=== PATIENT | male | born 1975 | race Caucasian/White ===

== ENCOUNTER 2024-01-18 23:13 | Emergency (ER) | payer OTHER, SELFPAY ==
[2024-01-18 23:18] VITALS: BP 179/131; PULSE 80; RESP 16; O2SAT 96; BMI 42.4
--- NOTE | 2024-01-18 23:35 | ED_ITS ---
HPI - General Adult General Chief complaint: Hypertension Stated complaint: High Blood Pressure Time Seen by Provider: 01/18/24 23:25 History of Present Illness HPI narrative: Patient is a 48-year-old gentleman comes in today with a elevation is blood pressure peers blood pressure has been elevated for the last several months. He is currently on lisinopril 40 mg daily and was recently started on metoprolol 50 mg daily. He feels like his blood pressure still not under good control and he is quite anxious about this. He had some dry mouth earlier but no chest pain shortness a breath orthopnea no PND no nausea no vomiting. Patient is also on allopurinol for gout and has no gout symptoms. Due to his elevated blood pressure comes in for further evaluation. Related Data Allergies Allergy/AdvReac Type Severity Reaction Status Date / Time No Known Drug Allergies Allergy Verified 01/18/24 23:23 Review of Systems Status of ROS: Reports: 10 or more systems reviewed and unremarkable except as noted in History and below [facility] Medical History Gout ?M10.9 - Gout, unspecified (ICD-10) Hypertension ?I10 - Essential (primary) hypertension (ICD-10) Exam Narrative: Exam Narrative: EXAM GENERAL: Patient appears comfortable and well. EYES: No scleral icterus. LYMPH: No supraclavicular or cervical lymphadenopathy. SKIN: Visible skin seen during exam normal or with benign process only. EXT: No dependent lower extremity pedal edema. HEART: Regular rate and rhythm with no murmurs, rubs, or gallops. LUNGS: Clear to auscultation bilaterally with no crackles or wheezes. ABD: Soft, non tender, non distended. PSYCH: Good eye contact, speech is not pressured. Const: Vital Signs, click to edit/add: Vital Signs - 24 hr 01/18/24 23:18 Pulse Rate [Left P ulse Oximeter] 80 Respiratory Rate 16 Blood Pressure [Ri ght Upper Arm] 179/131 H Pulse Oximetry 96 Oxygen Delivery Me thod Room Air Course Course ED Course: Patient seen examined. We did have a nice discussion about the management of hypertension. Vital Signs Vital signs: Initial Vital Signs Temperature Source Temporal Artery Scan 01/18/24 23:18 Pulse Rate 80 01/18/24 23:18 Pulse Rhythm Regular 01/18/24 23:18 Respiratory Rate 16 01/18/24 23:18 Blood Pressure 179/131 H 01/18/24 23:18 Blood Pressure Mean 147 H 01/18/24 23:18 Blood Pressure Position Sitting 01/18/24 23:18 Pulse Oximetry 96 01/18/24 23:18 Oxygen Delivery Method Room Air 01/18/24 23:18 Vital Signs Pulse Rate 80 01/18/24 23:18 Respiratory Rate 16 01/18/24 23:18 Blood Pressure 179/131 H 01/18/24 23:18 Pulse Oximetry 96 01/18/24 23:18 Oxygen Delivery Method Room Air 01/18/24 23:18 Pulse Rate 80 01/18/24 23:18 Respiratory Rate 16 01/18/24 23:18 Blood Pressure 179/131 H 01/18/24 23:18 Pulse Oximetry 96 01/18/24 23:18 Oxygen Delivery Method Room Air 01/18/24 23:18 Medical Decision Making MDM Narrative Medical decision making narrative: Patient is a 48-year-old gentleman comes in today to address his elevated blood pressure. I did do a thorough exam and find no focal defects. He is at this time treated with increase of his metoprolol to 50 mg b.i.d. continuation of lisinopril close outpatient follow-up. Do not believe any laboratory or imaging is indicated. Discharge Plan Discharge Clinical Impression: Hypertension Patient Disposition: Home, Self-Care Condition: Stable Instructions: Hypertension (ED) Additional Instructions: Increase metoprolol to 50 mg twice daily. Continue lisinopril and allopurinol Follow-up with your doctor this coming week. Activity Level: No Restrictions Discharge Diet: Regular Follow Up/Referrals: Gracie Harding PA [Primary Care Provider] - Stand Alone Forms: [employer] Info Instructions
== END 2024-01-18 23:50 | disposition home or self-care (01) ==
LOC: ED 23:42
PROVIDERS: Emergency Provider Internal Medicine; PCP Student in an Organized Health Care Education/Training Program
DX: I10 Essential (primary) hypertension (principal)
CPT/HCPCS: 99283

== ENCOUNTER 2024-06-30 15:48 | Outpatient (CLI) | payer OTHER, SELFPAY ==
--- OUTSIDE RECORDS SUMMARY | 2024-07-03 12:16 | XMS_ITS | Clinical Summary ---
Author Organization [employer] [facility] [employer] [facility] [employer] [facility] Address [place], [place] [address] Care Team Providers Care Cook Fish And Chips Name Role Phone Unavailable Primary Care Provider Unavailabl e Allergies No known active allergies Medications Medication Sig Dispensed Refills Start Date End Date Status fluticasone (50 mcg per actuation) nasal solution (FLONASE)Indication s:Eustachian tube dysfunction, bilateral Inhale 2 Sprays into both nostrils once daily. 1 Bottle 3 09/04/2018 Active zolpidem (AMBIEN) 5 mg tabletIndications:I nsomnia, idiopathic TAKE ONE TO TWO TABLETS BY MOUTH AT BEDTIME NEEDED FOR SLEEP 30 Tablet 08/26/2021 Active lisinopriL (PRINIVIL; ZESTRIL) 40 mg tabletIndications:H ypertension Take 1 Tablet (40 mg) by mouth once daily. 100 Tablet 3 12/24/2023 Active colchicine 0.6 mg tabletIndications:A cute gout involving toe of right foot, unspecified cause On day one take 2 tablets (1.2mg) at once then wait one hour and take 1 tablet (0.6mg). On day two take 0.6 mg twice daily until 48 hours after resolution of the flare. 20 Tablet 3 01/02/2024 Active metoprolol succinate (Toprol XL) 50 mg sustained-release tabletIndications:H ypertension Take 1 Tablet (50 mg) by mouth once daily. 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 TAKE TWO TABLETS BY MOUTH EVERY DAY 180 Tablet 3 01/28/2024 Active CPAPIndications:ASHISH (obstructive sleep apnea) resmed CPAP machine for home use at pressure 12 cmw epr 2, CPAP mask- mask of choice, fit to comfort one cushion per month 1 Each 04/10/2024 Active Active Problems Problem Noted Date Diagnosed Date Colon polyp 04/12/2023 Overview: Colonoscopy 03/2023 SSA, repeat in 5 years, propofol Personal history of COVID-19 05/13/2022 BRCA2 positive 01/30/2020 Overview: Needs clinical breast exam yearly Needs prostate cancer screening yearly Needs Dermatology visit annually due to higher risk of melanoma Needs eye appt yearly to look for melanoma in the eye ASHISH 07/18/2018 HST AHI-26 and Centrals /2017 Central sleep apnea 08/19/2018 Hypertension 07/15/2018 Eustachian tube dysfunction 03/03/2015 Encounters Date Type Department Care Team Description 04/10/2024 11:00 AM CDT Office Visit [facility] [address] [place] [address] Wyatt Maldonado MD Sleep Follow-up (cpap) 04/10/2024 Travel from Last 3 Months Immunizations Name Administration Dates Next Due COVID-19 vaccine (Moderna 100mcg/0.5mL) PFMDV 11/09/2021 Td (Age >=7 Years) 11/17/2010,08/13/2006 Td, Preservative Free (age >= 7 Years) 6 Tdap 03/29/2016 Family History Medical History Relation Name Comments Atrial fibrillation Father Genetic Maternal Aunt BRCA gene posi tive? Cancer-breast Maternal Grandmother in her early 40s Genetic Mother BRCA2 gene posi tive Anesthesia Problem No Family History Relation Name Status Comments Father Alive Maternal Aunt Maternal Grandmother Mother Alive Sister Alive Social History Tobacco Use Types Packs/Day Years Used Date Smoking Tobacco: Never Smokeless Tobacco: Current Chew Tobacco Cessation:Ready to Q uit: No; Counseling Given: Yes Alcohol Use Standard Drinks/Week Comments Not Currently 0 (1 standard drink = 0.6 oz pur e alcohol) 2 drinks per week PHQ-2 Answer Date Recorded PHQ-2 TOTAL SCORE 2 01/02/2024 Social Connections Answer Date Recorded Frequency of Communication with Friends and Fami ly 0 10/29/2023 Financial Resource Strain Answer Date R ecorded Difficulty of Paying Living Expenses 3 10/29/2023 Difficulty of Paying Living Expenses Not on file 10/29/2023 Food Insecurity Answer Date Recorded Worried About Running Out of Food in the Last Ye ar 1 10/29/2023 Transportation Needs Answer Date Record ed Lack of Transportation (Medical) 1 10/29/2023 Housing Stability Answer Date Recorded Unable to Pay for Housing in the Last Year 1 10/29/2023 Sex and Gender Information Value Date Recorded Sex Assigned at Not on file Gender Identity Not on file Sexual Orientation Not on file Obstetrics History Last Filed Vital Signs Vital Sign Reading Time Taken Comments Blood Pressure 146/92 04/10/2024 10:49 AM CDT Pulse 58 04/10/2024 10:49 AM CDT Temperature 37 ??C (98.6 ??F) 06/01/2022 10: 26 AM CDT Respiratory Rate 10 06/22/2022 2:36 PM CDT Oxygen Saturation 97% 04/10/2024 10: 49 AM CDT Inhaled Oxygen Concentration - - Weight 146.9 kg (323 lb 12.8 oz) 2023 10:49 AM CDT Height 186.4 cm (6' 1.4) 01/28/2024 10 :57 AM CDT Body Mass Index 42.26 01/28/2024 10:57 AM CDT Plan of Treatment Health Maintenance Due Date Last Done Comments HIV for age 15-65 1990 COVID-19 vaccine series ( season) 2023 11/09/2021, 03/24/2021, 02/24/2021 Influenza for age 9-49 07/20/2024 Depression screening for age 12+ 01/02/2025 01/02/2024, 09/29/2022, 05/31/2021, Additional history exists BMI (ht and wt on same day) for age 18+ 01/27/2025 01/28/2024, 10/29/2023, 04/06/2023, Additional history exists Tetanus booster 03/29/2026 03/29/2016, 10/21, 08/13/2006, Additional history exists Lipids for age 45-75 09/29/2027 09/29/2022, 05/31/2021, 01/30/2020, Additional history exists Colonoscopy through age 75 04/09/2028 04/09/2023, Tdap Completed 03/29/2016 Hepatitis C screening for age 18-79 Completed 09/29/2022 Pneumococcal series for age 6-64 Aged Out No longer eligible based on patient's age to complete this topic Procedures Procedure Name Priority Date/Time Associated Diagnosis Comments COLONOSCOPY SCREENING Routine 04/09/2023 12:00 AM CDT Screening for colon cancer ANTI HCV Routine 09/29/2022 8:20 AM PURCHASING SUPERVISOR Need for hepatitis C screening test LIPID PANEL W REFLEX MEASURED LDL Routine 09/29/2022 8:20 AM PURCHASING SUPERVISOR Hyperlipidemia, unspecified hyperlipidemia type from Last 3 Months or Most Recently Relevant to Health Maintenance Results * COLONOSCOPY SCREENING (04/09/2023 12:00 AM CDT) Gracie GARCIA GI PROCEDURE ORD * (ABNORMAL) LIPID PANEL W REFLEX MEASURED LDL (09/29/2022 8:20 AM PURCHASING SUPERVISOR) CHOLESTEROL,TOTAL 185 100 - 199 mg/dL 09/30/2022 7:33 PM PURCHASING SUPERVISOR [facility] TRIGLYCERIDES 144 <150 mg/dL 09/30/2022 7:33 PM PURCHASING SUPERVISOR [facility] HDL CHOLESTEROL 38(L) >40 mg/dL 7:33 PM PURCHASING SUPERVISOR [facility] NON-HDL CHOLESTEROL 147(H) <145 mg/dl 09/30/2022 7:33 PM PURCHASING SUPERVISOR [facility] CHOL/HDL RATIO 4.87(H) <4.50 09/30/2022 7:33 PM PURCHASING SUPERVISOR [facility] LDL CHOLESTEROL 118 <=130 mg/dL 09/30/2022 7:33 PM PURCHASING SUPERVISOR [facility] VLDL CHOLESTEROL 29 <=30 mg/dL 09/30/2022 7:33 PM PURCHASING SUPERVISOR [facility] PROVIDER ORDERED STATUS RANDOM 09/30/2022 7:33 PM PURCHASING SUPERVISOR [facility] Blood BLOOD SPECIMEN / Unknown Venipuncture / Unknown 09/29/2022 8:20 AM PURCHASING SUPERVISOR 09/29/2022 8:22 AM PURCHASING SUPERVISOR Gracie GARCIA CHEMISTRY [facility] [address] [place] [address], * ANTI HCV (09/29/2022 8:20 AM PURCHASING SUPERVISOR) HEPATITIS C ANTIBODY Non-React dionne Non-React dionne 09/30/2022 7:32 PM PURCHASING SUPERVISOR [facility] Comment:Antibodies to HCV no t detected; does not exclude the possibility of exposure to HCV. Blood BLOOD SPECIMEN / Unknown Venipuncture / Unknown 09/29/2022 8:20 AM PURCHASING SUPERVISOR 09/29/2022 8:22 AM PURCHASING SUPERVISOR Gracie GARCIA SEND OUTS Performing Organization Address City/[facility]/ZIP Co de Phone Number [facility] [address] [place] [address], from Last 3 Months or Most Recently Relevant to Health Maintenance
--- OUTSIDE RECORDS SUMMARY | 2024-07-03 12:16 | XMS_ITS | Referral Summary ---
Author Organization [facility] Address [address] [place] [id number] Care Team Providers Care Bulk Mail Clerk Name Role Phone System, Provider Not In Primary Care Provider Un available Allergies Active Allergy Reactions Criticality Noted Date Comments No Known Drug Allergy 04/25/2010 Medications Medication Sig Dispensed Refills Start Date End Date Status lisinopril (ZESTRIL) 20 MG tablet Take 20 mg by mouth daily Active fluticasone (FLONASE) 50 MCG/ACT nasal spray [place] 2 sprays into both nostrils at bedtime Active zolpidem (AMBIEN) 5 MG tablet Take 5-10 mg by mouth nightly as needed for sleep Active acetaminophen (TYLENOL) 325 MG tabletIndications:An kle joint replacement status, left Take 2 tablets (650 mg) by mouth every 6 hours 100 tablet 11/16/2023 Active aspirin (ASA) 325 MG EC tabletIndications:An kle joint replacement status, left Take 1 tablet (325 mg) by mouth daily 42 tablet 11/16/2023 Active senna-docusate (SENOKOT-S/PERICOLAC E) 8.6-50 MG tabletIndications:An kle joint replacement status, left Take 1-2 tablets by mouth 2 times daily Take while on oral narcotics to prevent or treat constipation. 30 tablet 11/16/2023 Active polyethylene glycol (MIRALAX) 17 g packetIndications:An kle joint replacement status, left Take 17 g by mouth daily 7 packet 11/16/2023 Active celecoxib (CELEBREX) 200 MG capsuleIndications:A nkle joint replacement status, left Take 1 capsule (200 mg) by mouth daily for 14 days Do not take within 6 hours of ibuprofen (MOTRIN, ADVIL) or ketorolac (TORADOL) if prescribed. 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 Alcohol Use Standard Drinks/Week Comments Not Currently 0 (1 standard drink = 0.6 oz pur e alcohol) Adolescent Education Answer Date Record ed Getting School Help Needed Not on file 11/05 Sex and Gender Information Value Date Recorded Sex Assigned at Not on file Gender Identity Not on file Sexual Orientation Not on file Last Filed Vital Signs Vital Sign Reading Time Taken Comments Blood Pressure 141/74 11/17/2023 8:02 AM VICE PRESIDENT MARKETING & DEVELOPMENT Pulse 75 11/17/2023 8:02 AM VICE PRESIDENT MARKETING [employer] DEVELOPMENT Temperature 37.1 ??C (98.8 ??F) 11/17/2023 8:02 AM CS T Respiratory Rate 16 11/17/2023 8:02 AM VICE PRESIDENT MARKETING & DEVELOPMENT Oxygen Saturation 92% 11/17/2023 8:02 AM VICE PRESIDENT MARKETING & DEVELOPMENT Inhaled Oxygen Concentration - - Weight 149.2 kg (329 lb) 11/13/2023 9:00 AM VICE PRESIDENT MARKETING & DEVELOPMENT Height 187.5 cm (6' 1.82) 11/13/2023 9:00 AM CS T Body Mass Index 42.45 11/13/2023 9:00 AM VICE PRESIDENT MARKETING & DEVELOPMENT Plan of Treatment Not on file Medical Devices Implanted Type Area Financial Engineer Device Identifier Shelf Expiration Date Model / Serial / Lot Imp Scr Syn Can 4.0x44mm Short Ss 207.644 - [id number] Implanted:Qt y: 1 on 11/16/2023 by Wyatt De La Torre MD at [facility] Metallic Hardware/An chor Right: Ankle SYNTHES-STRATEC 207.644 / / Cmpnt Tlr Alissa Talaris Xt 3 Ankl Rt Cocr Flt Cut [id number] - [id number] Implanted:Qt y: 1 on 11/16/2023 by Wyatt De La Torre MD at [facility] Total Joint Component/I nsert Right: Ankle [employer] [id number] 09/13/2025 [id number] / / [id number] Bsplt Tib 3 Kn 4mm - [id number] Implanted:Qt y: 1 on 11/16/2023 by Wyatt De La Torre MD at [facility] Total Joint Component/I nsert Right: Ankle [employer] [id number] 03/31/2024 [id number] / / [id number] Insert Talus 8mm 3 Ankl Rt Uhmwpe [id number] - [id number] Implanted:Qt y: 1 on 11/16/2023 by Wyatt De La Torre MD at [facility] Total Joint Component/I nsert Right: Ankle [employer] [id number] 07/18/2026 [id number] / / [id number] Procedures Procedure Name Priority Date/Time Associated Diagnosis Comments GLUCOSE Routine 11/17/2023 5:57 AM VICE PRESIDENT MARKETING [employer] DEVELOPMENT from Last 3 Months or Most Recently Relevant to Health Maintenance Results * (ABNORMAL) Glucose (11/17/2023 5:57 AM VICE PRESIDENT MARKETING & DEVELOPMENT) Glucose 120(H) 70 - 99 mg/dL 11/17/2023 6:40 AM VICE PRESIDENT MARKETING & DEVELOPMENT [facility] Patient Fasting > 8hrs? No 11/17/2023 6:40 AM VICE PRESIDENT MARKETING & DEVELOPMENT [facility] Blood BLOOD SPECIMEN / Unknown Venipuncture / Unknown 11/17/2023 5:57 AM VICE PRESIDENT MARKETING & DEVELOPMENT 11/17/2023 6:13 AM VICE PRESIDENT MARKETING & DEVELOPMENT Wyatt De La Torre MD LAB - BLOOD ORD ERABLES [facility] [address] [facility] [place] [address], [facility] [phone] from Last 3 Months or Most Recently Relevant to Health Maintenance Advance Directives For more information, please contact: [phone] * Full Code (Latest Code Status on File) Date Activated Date Inactivated Comments 11/16/2023 2:31 PM 11/17/2023 3:17 PM All basic and advanced life-sustaining interventions are performed as appropriate Question Answer Comments Code status determined by: Unable to dis cuss and no AD/POLST on file; continue PREVIOUSLY ORDERED code status Care Teams Bulk Mail Clerk Relationship Specialty Start Date End Date System, Provider Not In PCP - General Clinic 11/16/23
--- OUTSIDE RECORDS SUMMARY | 2024-07-03 12:16 | XMS_ITS | Clinical Summary ---
Author Organization [facility] Address [address] [place] [address] Care Team Providers Care Blood Donor Recruiter Supervisor Name Role Phone System, Provider Not In Primary Care Provider Un available Allergies Active Allergy Reactions Criticality Noted Date Comments No Known Drug Allergy 04/25/2010 Medications Medication Sig Dispensed Refills Start Date End Date Status lisinopril (ZESTRIL) 20 MG tablet Take 20 mg by mouth daily Active fluticasone (FLONASE) 50 MCG/ACT nasal spray [place] 2 sprays into both nostrils at bedtime [...] Dates Next Due TD,PF 7+ (Tenivac) 08/13/2006 Family History Medical History Relation Comments Diabetes Maternal Grandmother Eye Disorder No family hx of Relation Status Comments Maternal Grandmother Social History Tobacco Use Types Packs/Day Years [...] Comments Blood Pressure 141/74 11/17/2023 8:02 AM PALLIATIVE CARE NURSE Pulse 75 11/17/2023 8:02 AM PALLIATIVE CARE NURSE Temperature 37.1 ??C (98.8 ??F) 11/17/2023 8:02 AM CS T Respiratory Rate 16 11/17/2023 8:02 AM PALLIATIVE CARE NURSE Oxygen Saturation 92% 11/17/2023 8:02 AM PALLIATIVE CARE NURSE Inhaled Oxygen Concentration - - Weight 149.2 kg (329 lb) 11/13/2023 9:00 AM PALLIATIVE CARE NURSE Height 187.5 cm (6' 1.82) 11/13/2023 9:00 AM CS T Body Mass Index 42.45 11/13/2023 9:00 AM PALLIATIVE CARE NURSE Plan of Treatment Health Maintenance Due Date Last Done Comments ADVANCE CARE PLANNING 1975 ANNUAL REVIEW OF HM ORDERS 1975 CT COLONOGRAPHY 1975 FIT 1975 FLEX SIG 1975 sDNA (Cologuard) 1975 COLONOSCOPY 1985 COLORECTAL CANCER SCREENING 1985 HIV SCREENING 1990 HEPATITIS C SCREENING 1993 HEPATITIS B IMMUNIZATION (1 of 3 - 19+ 3-dose series) 1994 LIPID 2015 COVID-19 Vaccine ( season) 2023 11/09/2021, 03/24/2021, 02/24/2021 YEARLY PREVENTIVE VISIT 09/29/2023 09/29/2022 PHQ-2 (once per calendar year) 2023 INFLUENZA VACCINE (#1) 2024 ZOSTER IMMUNIZATION (1 of 2) 2025 DTAP/TDAP/TD IMMUNIZATION (2 - Td or Tdap) 03/29/2026 03/29/2016, 11/17/2010, 08/13/2006, Additional history exists GLUCOSE 11/17/2026 11/17/2023 HPV IMMUNIZATION Aged Out No longer e ligible based on patient's age to complete this topic IPV IMMUNIZATION Aged Out No longer e ligible based on patient's age to complete this topic MENINGITIS IMMUNIZATION Aged Out No l onger eligible based on patient's age to complete this topic Pneumococcal Vaccine: Pediatrics (0 to 5 Years) and At-Risk Patients (6 to 64 Years) Aged Out No longer eligible based on patient's age to complete this topic RSV MONOCLONAL ANTIBODY Aged Out No l onger eligible based on patient's age to complete this topic Medical Devices Implanted Type Area Indoor Landscaper/Gardener Device Identifier Shelf Expiration Date Model / Serial / Lot Imp Scr Syn Can 4.0x44mm Short Ss 207.644 - [id number] Implanted:Qt y: 1 on 11/16/2023 by Wyatt De La Torre MD at [facility] Metallic Hardware/An chor Right: Ankle SYN[employer]ES-[employer]AT[employer] 207.644 / / Cmpnt Tlr Alissa Talaris Xt 3 Ankl Rt Cocr Flt Cut [id number] - [id number] Implanted:Qt y: 1 on 11/16/2023 by Wyatt De La Torre MD at [facility] Total Joint Component/I nsert Right: Ankle [employer] [id number] 09/13/2025 [id number] / / [id number] Bsplt Tib 3 Kn 4mm - [id number] Implanted:Qt y: 1 on 11/16/2023 by Wyatt De La Torre MD at [facility] Total Joint Component/I nsert Right: Ankle [employer] [id number] 03/31/2024 [id number] / / [id number] Insert Talus 8mm 3 Ankl Rt Uhmwpe Vhx318m - [id number] Implanted:Qt y: 1 on 11/16/2023 by Wyatt De La Torre MD at [facility] Total Joint Component/I nsert Right: Ankle [employer] [id number] 07/18/2026 [id number] / / [id number] Procedures Procedure Name Priority Date/Time Associated Diagnosis Comments GLUCOSE Routine 11/17/2023 5:57 AM PALLIATIVE CARE NURSE from Last 3 Months or Most Recently Relevant to Health Maintenance Results * (ABNORMAL) Glucose (11/17/2023 5:57 AM PALLIATIVE CARE NURSE) Glucose 120(H) 70 - 99 mg/dL 11/17/2023 6:40 AM PALLIATIVE CARE NURSE [facility] Patient Fasting > 8hrs? No 11/17/2023 6:40 AM PALLIATIVE CARE NURSE [facility] Blood BLOOD SPECIMEN / Unknown Venipuncture / Unknown 11/17/2023 5:57 AM PALLIATIVE CARE NURSE 11/17/2023 6:13 AM PALLIATIVE CARE NURSE Wyatt De La Torre MD LAB - BLOOD ORD ERABLES [facility] [address] [place], [place] [address], [facility] [phone] from Last 3 Months or Most Recently Relevant to Health Maintenance Advance Directives For more information, please contact: [phone] * Full Code (Latest Code Status on File) Date Activated Date Inactivated Comments 11/16/2023 2:31 PM 11/17/2023 3:17 PM All basic and advanced life-sustaining interventions are performed as appropriate Question Answer Comments Code status determined by: Unable to dis cuss and no AD/POLST on file; continue PREVIOUSLY ORDERED code status Care Teams Blood Donor Recruiter Supervisor Relationship Specialty Start Date End Date System, Provider Not In PCP - General Clinic 11/16/23
== END 2024-06-30 15:49 | disposition home or self-care (01) ==
LOC: NFLDREF 07-03 12:15
PROVIDERS: PCP Internal Medicine; Referring Provider Internal Medicine; Visit Provider Internal Medicine
DX: I10 Essential (primary) hypertension (principal); Z13.220 Encounter for screening for lipoid disorders
CPT/HCPCS: 80053; 80061

== ENCOUNTER 2025-03-19 13:03 | Outpatient (CLI) | payer OTHER, SELFPAY | END 2025-03-19 13:04 | disposition home or self-care (01) | PROVIDERS: PCP Internal Medicine; Visit Provider Internal Medicine | DX: Z12.5 Encounter for screening for malignant neoplasm of prostate (principal) | CPT/HCPCS: G0103 ==

== ENCOUNTER 2025-09-17 07:30 | Outpatient (CLI) | payer OTHER, SELFPAY | END 2025-09-17 07:31 | disposition home or self-care (01) | LOC: NFLDREF 09-18 04:10 | PROVIDERS: PCP Internal Medicine; Referring Provider Internal Medicine; Visit Provider Internal Medicine | DX: I10 Essential (primary) hypertension (principal); E78.5 Hyperlipidemia, unspecified | CPT/HCPCS: 80053; 80061; 84403 ==